=== PATIENT | male | born 1985 | race Caucasian/White ===

== ENCOUNTER 2022-01-18 12:09 | Emergency (ER) | payer OTHER ==
[2022-01-18] MEDS ORDERED: metroNIDAZOLE 500 MG TAB ONE ×2 (12:46)
[2022-01-21 15:45] LABS: Chlam.trachomatis by PCR,Urine Not Detected (NotDetected)
== END 2022-01-18 13:25 | disposition home or self-care (01) ==
LOC: NAV ERS 12:09
DX: A59.9 Trichomoniasis, unspecified (principal)
CPT/HCPCS: 87491; 87591; 99282